=== PATIENT | male | born 1975 | race Caucasian/White ===

== ENCOUNTER → 2016-06-30 | Outpatient (REF) | payer OTHER | LOC: M LAB REF 16:12 | PROVIDERS: ATTEND Surgery | DX: L02.512 Cutaneous abscess of left hand (principal); L02.31 Cutaneous abscess of buttock ==

== ENCOUNTER 2017-07-29 09:55 | Emergency (ER) | payer OTHER, BC ==
[2017-07-29] MEDS: ALBUTEROL SULFATE 2.5 MG/0.5 ML INH NEB SOLN INH (10:26)
== END 2017-07-29 14:02 | disposition home or self-care (01) ==
LOC: M ED 09:55
DX: J70.5 Respiratory conditions due to smoke inhalation (principal)
CPT/HCPCS: 71046

== ENCOUNTER → 2017-11-10 | Outpatient (CLI) | payer BC | LOC: M WUC 19:19 | DX: M25.561 Pain in right knee (principal) | CPT/HCPCS: 73564 ==

== ENCOUNTER → 2018-04-29 | Outpatient (CLI) | payer BC ==
[2018-04-29 18:08] LABS: HEMATOCRIT 45.6 % (42.0-52.0); HEMOGLOBIN 14.2 g/dl (13.5-17.5); MEAN CORPUSCULAR HEMOGLOBIN 26.9 pg (27.0-33.0); MEAN CORPUSCULAR HGB CONC 31.1 g/dl (32.0-36.5); MEAN CORPUSCULAR VOLUME 86.5 fl (80.0-96.0); PLATELET COUNT, AUTOMATED 229 10^3/uL (150-450); RED BLOOD COUNT 5.27 10^6/uL (4.30-6.10); WHITE BLOOD COUNT 6.6 10^3/uL (4.0-10.0)
[2018-04-29 18:12] LABS: ALBUMIN 3.5 GM/DL (3.2-5.2); ALT/SGPT 33 U/L (12-78); BILIRUBIN,TOTAL 0.7 MG/DL (0.2-1.0); BLOOD UREA NITROGEN 11 MG/DL (7-18); CARBON DIOXIDE LEVEL 32 MEQ/L (21-32); CHLORIDE LEVEL 106 MEQ/L (98-107); CHOLESTEROL LEVEL 192 MG/DL (<200); CHOLESTEROL RISK RATIO 4.085 (<5); CREATININE FOR GFR 0.74 MG/DL (0.70-1.30); GLOMERULAR FILTRATION RATE > 60.0 (>60); GLUCOSE, FASTING 100 MG/DL (70-100); HDL CHOLESTEROL 47 MG/DL (>40); LDL CHOLESTEROL 122 MG/DL (<100); NON-HDL-C 145 MG/DL; POTASSIUM SERUM 4.8 MEQ/L (3.5-5.1); SODIUM LEVEL 143 MEQ/L (136-145); TOTAL PROTEIN 6.7 GM/DL (6.4-8.2); TRIGLYCERIDES LEVEL 117 MG/DL (<150)
[2018-05-01 10:50] LABS: TOTAL 25(OH) VITAMIN D 18.2 NG/ML (30.0-100.0)
[2018-05-01 10:51] LABS: VITAMIN B12 LEVEL 420 PG/ML (247-911)
== END ==
LOC: M WUC 10:36
PROVIDERS: ATTEND Surgery
DX: E66.01 Morbid (severe) obesity due to excess calories (principal)

== ENCOUNTER → 2019-03-02 | Outpatient (CLI) | payer BC ==
--- NOTE | 2019-03-02 10:33 | REP ---
Soft-tissue ultrasound right face and neck: History: Localized swelling, mass and lump. Findings: Scanning in the area of swelling directed by the patient reveals that the swelling is in the area of the right parotid gland. Within the gland there is a 1.4 x 1.4 x 0.9 cm slightly hypoechoic nodule. This is heterogeneous. No cyst or abscess is seen. Study is otherwise unremarkable. Impression: 1.4 cm hypoechoic solid nodule in the right parotid gland. Intraparotid lymph node versus a small parotid neoplasm. Soft tissue neck CT study with IV contrast may provide additional information. Electronically Signed by Nasim Hdz MD 03/02/2019 10:42 A
== END ==
LOC: M RAD 08:55
DX: R22.0 Localized swelling, mass and lump, head (principal)

== ENCOUNTER → 2019-08-27 | Outpatient (CLI) | payer BC ==
[2019-08-27 09:00] LABS: ALBUMIN 3.3 GM/DL (3.2-5.2); ALT/SGPT 40 U/L (12-78); BILIRUBIN,TOTAL 0.6 MG/DL (0.2-1.0); BLOOD UREA NITROGEN 15 MG/DL (7-18); CALCIUM LEVEL 9.4 MG/DL (8.5-10.1); CARBON DIOXIDE LEVEL 31 MEQ/L (21-32); CHLORIDE LEVEL 104 MEQ/L (98-107); CHOLESTEROL LEVEL 196 MG/DL (<200); CREATININE FOR GFR 0.78 MG/DL (0.70-1.30); GLOMERULAR FILTRATION RATE > 60.0 (>60); GLUCOSE, FASTING 137 MG/DL (70-100); HDL CHOLESTEROL 46 MG/DL (>40); LDL CHOLESTEROL 122 MG/DL (<100); NON-HDL-C 150 MG/DL; POTASSIUM SERUM 4.1 MEQ/L (3.5-5.1); SODIUM LEVEL 140 MEQ/L (136-145); TOTAL PROTEIN 6.7 GM/DL (6.4-8.2); TRIGLYCERIDES LEVEL 142 MG/DL (<150)
[2019-08-27 10:03] LABS: TOTAL 25(OH) VITAMIN D 24.5 NG/ML (30.0-100.0)
== END ==
LOC: M LAB 07:44
PROVIDERS: ATTEND Family Medicine
DX: C85.10 Unspecified B-cell lymphoma, unspecified site (principal); I10 Essential (primary) hypertension; Z80.42 Family history of malignant neoplasm of prostate; R53.81 Other malaise; E66.01 Morbid (severe) obesity due to excess calories

== ENCOUNTER → 2020-11-22 | Outpatient (CLI) | payer BC ==
[2020-11-24 23:12] LABS: TESTOSTERONE FREE (DIRECT) 6.5 pg/mL (6.8-21.5)
== END ==
LOC: M LAB 09:56
PROVIDERS: ATTEND Nurse Practitioner Family
DX: R53.83 Other fatigue (principal)

== ENCOUNTER → 2022-07-05 | Outpatient (CLI) | payer OTHER | LOC: M RAD 08:49 | PROVIDERS: ATTEND Nurse Practitioner Family | DX: Z85.828 Personal history of other malignant neoplasm of skin (principal) ==

== ENCOUNTER 2024-04-25 12:27 | Day surgery (SDC) | payer OTHER ==
[~2024-04-25] VITALS: Ht 180.3 cm; Wt 172.4 kg
[~2024-04-25 12:27] MED LIST: ANAS1TAB2 PO; NS 250 ML IV ONE; PRO1CAP PO; TEST200I14 IM; [UNRECOGNIZED DRUG - OTHER] PO
[2024-04-25] MEDS ORDERED: propofoL 200 MG/20 ML VIAL As Ordered ONE (12:30)
[2024-04-25] MEDS ORDERED: LIDOCAINE 2% 100MG/5ML SDV (FOR ANES.) As Ordered ONE (12:30)
[2024-04-25] MEDS ORDERED: fentaNYL 100 MCG/2 ML INJECTION As Ordered ONE (13:02)
[2024-04-25 14:20] VITALS: TEMP 97.9
[2024-04-25 14:40] VITALS: BP 169/85; O2SAT 93
== END 2024-04-25 14:46 | disposition home or self-care (01) ==
LOC: M SDC 12:27
PROVIDERS: ATTEND Internal Medicine Gastroenterology
DX: Z12.11 Encounter for screening for malignant neoplasm of colon (principal); D12.6 Benign neoplasm of colon, unspecified; K57.30 Diverticulosis of large intestine without perforation or abscess without bleeding; K64.0 First degree hemorrhoids; K44.9 Diaphragmatic hernia without obstruction or gangrene; K91.89 Other postprocedural complications and disorders of digestive system; Z85.028 Personal history of other malignant neoplasm of stomach; Z79.899 Other long term (current) drug therapy; Z98.84 Bariatric surgery status
CPT/HCPCS: 43239; 45385; 88305; J3010

== ENCOUNTER → 2024-07-10 | Outpatient (CLI) | payer OTHER ==
[~2024-07-10] MED LIST changes: -NS 250 ML IV ONE
[2024-07-10 15:53] LABS: BLOOD UREA NITROGEN 13 MG/DL (9-23); CREATININE FOR GFR 0.81 MG/DL (0.70-1.30); GLOMERULAR FILTRATION RATE > 90.0 (>56)
== END ==
LOC: M LAB 14:13
PROVIDERS: ATTEND Nurse Practitioner Family
DX: Z85.528 Personal history of other malignant neoplasm of kidney (principal)

== ENCOUNTER → 2024-07-13 | Outpatient (CLI) | payer OTHER ==
[~2024-07-13] MED LIST changes: +ISOVUE-370 76% 100ML VIAL As Ordered ONE
== END ==
LOC: M RAD 13:22
PROVIDERS: ATTEND Nurse Practitioner Family
DX: Z85.528 Personal history of other malignant neoplasm of kidney (principal)
CPT/HCPCS: 74177; Q9967